=== PATIENT | female | born 1930 | race Two or more races ===

== ENCOUNTER 2017-01-06 19:30 | Inpatient (IN) | payer MEDICARE, MEDICAID ==
[~2017-01-06] VITALS: Ht 162.6 cm; Wt 54.4 kg
[~2017-01-06 19:30] MED LIST: DOCU-141 PO; LEVO50TA PO; ONDA4TAB8 PO; PANT40TA2 PO; VITAMIN D
[2017-01-06] MEDS ORDERED: LORAZEPAM 2 MG/1 ML VIAL IM ONE (19:45)
[2017-01-06] MEDS ORDERED: diphenhydrAMINE 50 MG/1 ML VIAL IM ONE (19:45)
[2017-01-06] MEDS ORDERED: HALOPERIDOL LACTATE 5 MG/1 ML VIAL IM ONE (19:45)
[2017-01-06] MEDS ORDERED: LORAZEPAM 2 MG/1 ML VIAL ONE (19:46)
[2017-01-06] MEDS ORDERED: HALOPERIDOL LACTATE 5 MG/1 ML VIAL ONE (19:46)
[2017-01-06] MEDS ORDERED: diphenhydrAMINE 50 MG/1 ML VIAL ONE (19:46)
[2017-01-06 20:01] LABS: BASOPHILS % (AUTO) 0.4 % (0.0-2.0); EOSINOPHILS # (AUTO) 0.2 K/uL (0.0-0.7); EOSINOPHILS % (AUTO) 2.6 % (0.0-7.0); HEMATOCRIT 39.3 % (37-47); HEMOGLOBIN 13.1 G/DL (12.0-16.0); LYMPHOCYTES # (AUTO) 3.3 K/UL (0.8-4.8); LYMPHOCYTES % (AUTO) 38.2 % (20.5-51.5); MEAN CORPUSCULAR HEMOGLOBIN 31.5 UUG (27.0-31.0); MEAN CORPUSCULAR HGB CONC 33 g/dL (32.0-37.0); MEAN CORPUSCULAR VOLUME 94.6 FL (81.0-99.0); MONOCYTES # (AUTO) 0.4 K/UL (0.1-1.30); MONOCYTES % (AUTO) 5.1 % (0.0-11.0); NEUTROPHILS # (AUTO) 4.7 K/UL (1.8-8.9); NEUTROPHILS % (AUTO) 53.7 % (38.5-71.5); PLATELET COUNT (AUTO) 231 K/UL (150-450); RED BLOOD CELL COUNT(AUTO) 4.15 MIL/UL (4.2-5.4); WHITE BLOOD COUNT (AUTO) 8.6 K/UL (4.0-11.2)
--- NOTE | 2017-01-06 20:02 | NUR ---
Patient BIB private ambulance for Medical Clearance and GPS admission. Patient arrives on 5150 hold for GD. Per hold, patient has been refusing food and care. Per hold, patient states that staff are "not real MD's and nurses." Per hold, patient beleives she can go get in her car and drive despite being legally blind. To room 5A.
[2017-01-06] MEDS ORDERED: RANI-473 PO (20:11)
[2017-01-06] MEDS ORDERED: ACET-2154 PO (20:11)
[2017-01-06] MEDS ORDERED: LISI10TA5 PO (20:11)
[2017-01-06] MEDS ORDERED: DONE10TA11 PO (20:11)
[2017-01-06 20:16] LABS: ALANINE AMINOTRANSFERASE 18 U/L (14-59); ALKALINE PHOSPHATASE 104 U/L (50-136); ASPARTATE AMINOTRANSFERASE 23 U/L (15-37); BILIRUBIN,DIRECT 0.1 mg/dL (0.0-0.2); BILIRUBIN,TOTAL 0.2 mg/dL (0.2-1.0); CARBON DIOXIDE 26 mmol/L (21-32); CHLORIDE 103 mmol/L (98-107); GLUCOSE 119 mg/dL (74-106); POTASSIUM 3.4 mmol/L (3.5-5.1); UREA NITROGEN, BLOOD 23 mg/dL (7-18)
[2017-01-06 20:18] LABS: ACETAMINOPHEN < 2.0 ug/mL (10-30)
[2017-01-06 20:23] LABS: THYROID STIMULATING HORMONE 3.607 mIU/mL (0.358-3.740)
[2017-01-06 20:30] LABS: ETHANOL < 3 MG/DL (0-0)
--- NOTE | 2017-01-06 21:20 | NUR ---
In-and-Out catheterization performed as ordered by ERMD, no urine available to be collected at this time. ERMD notified.
--- NOTE | 2017-01-06 21:36 | NUR ---
Pt. admitted to GPS, under care of Dr. Diaz. Belongs List completed.
[2017-01-06] MEDS ORDERED: MAGNESIUM HYDROXIDE 30 ML LIQUID UDC PO PRN (22:00)
[2017-01-06] MEDS ORDERED: ACETAMINOPHEN 325 MG TABLET PO PRN (22:00)
[2017-01-06] MEDS ORDERED: MAG HYDROX/AL HYDROX/SIMETH 30 ML LIQUID UDC PO PRN (22:00)
[2017-01-06] MEDS: TEMAZEPAM 7.5 MG CAPSULE PO PRN (23:00)
[2017-01-06] MEDS ORDERED: TEMAZEPAM 7.5 MG CAPSULE ONE (23:08)
--- NOTE | 2017-01-07 00:17 | NUR ---
On at approx 2145 admitted 86 years old to [facility]. with Dx psychosis. Pt is on a 5150 hold starting on 01/06/17 at 1730 and will end on 01/09/17 at 1730. Patient from a SNF who was refusing food, medication and care. She is a pt of Dr. Ortiz and Dr Cortes. Patient enter the facility via gurney. She was noted restless and agitative. She was unable to sign admission papers or give any information due to confusion and agitation. Dr. Cortes and Dr. العراقي were notified of admission awaiting for Dr. Rolle to call back. Skin is intact except for small red/purple bruises on both of her wrist posterior aspect and a small red circular spot of approx 0.6cm in diameter. we will call in the AM.
[2017-01-07 01:56] VITALS: BP 96/51
[2017-01-07 01:58] VITALS: BP 96/51
[2017-01-07 07:30] VITALS: BP 118/81
[2017-01-07] MEDS ORDERED: POTASSIUM CHLORIDE 20 MEQ TAB.PRT.SR PO ONE (13:00)
--- NOTE | 2017-01-07 13:01 | NUR ---
GPS/RN- Dr Zain Vasquez here to see patient, discussed chest xray results from 01/06/17: Mildly prominent interstitial lung markings, possibly representing interstitial edema, a viral chest infection, and/or chronic lung changes. no new orders. Current labs show potassium level 3.4, orders received for potassium order for 40meq once. orders repeated back to MD.
--- NOTE | 2017-01-07 15:32 | NUR ---
Initial discharge instructions: Pt resides at [facility][Note 3] [[address].[place],[address]; ].Per Jaimie ELIAS she would like the pt to return home upon discharge.Spoke with Juan F at the facility who stated they would accept the pt back once stable.CHAUNCEY will speak with pt,DPOA,and MD regarding appropriate discharge plans.SW will form a safe and proper discharge.
[2017-01-07 18:38] VITALS: BP 163/77
[2017-01-07 20:00] VITALS: BP 124/68
[2017-01-07] MEDS ORDERED: OLANZAPINE ZYDIS 5 MG TAB.RAPDIS PO SCH (20:00)
[2017-01-07] MEDS: DIVALPROEX SPRINKLE 125 MG CAP.SPRINK PO SCH (20:05)
[2017-01-07] MEDS ORDERED: ONDANSETRON ODT 4 MG TAB.RAPDIS SL PRN (21:30)
[2017-01-07] MEDS ORDERED: ACETAMINOPHEN 325 MG TABLET PO PRN (21:30)
[2017-01-08] MEDS: TEMAZEPAM 7.5 MG CAPSULE PO PRN (00:48)
[2017-01-08 01:36] LABS: *BILIRUBIN,URIN NEGATIVE (NEGATIVE); *BLOOD, URINE NEGATIVE (NEGATIVE); *CLARITY,URINE CLEAR (CLEAR); *COLOR,URINE YELLOW (YELLOW); *KETONES,URINE NEGATIVE (NEGATIVE); *PROTEIN,URINE NEGATIVE (NEGATIVE); *UROBILINOGEN,URINE 0.2 E.U./dl (NORMAL); LEUKOCYTE ESTERASE ,URINE NEGATIVE (NEGATIVE); NITRITE, URINE NEGATIVE (NEGATIVE); UGLUCOSE NEGATIVE (NEGATIVE)
[2017-01-08 01:41] LABS: RBC,URINE NONE SEEN /HPF (0-3); WBC,URINE 0-3 /HPF (0-3)
[2017-01-08 01:42] LABS: BACTERIA,URINE NONE SEEN /HPF (NONE SEEN); SQUAMOUS EPITHELIAL CELL,UR FEW /HPF (NONE SEEN)
[2017-01-08 07:30] VITALS: BP 152/79
[2017-01-08] MEDS: PANTOPRAZOLE SODIUM 40 MG TABLET.DR PO SCH (09:00)
[2017-01-08] MEDS: DIVALPROEX SPRINKLE 125 MG CAP.SPRINK PO SCH ×2 (09:00→20:05)
[2017-01-08] MEDS: LISINOPRIL 10 MG TABLET PO SCH (09:00)
[2017-01-08] MEDS: LEVOTHYROXINE SODIUM 25 MCG TABLET PO SCH (09:00)
[2017-01-08] MEDS: DOCUSATE SODIUM 100 MG CAPSULE PO SCH ×2 (09:00→17:00)
[2017-01-08] MEDS ORDERED: LEVOTHYROXINE SODIUM 50 MCG TABLET PO SCH (09:00)
[2017-01-08] MEDS: LORAZEPAM 0.5 MG TABLET PO PRN (16:08)
[2017-01-08] MEDS: OLANZAPINE ZYDIS 5 MG TAB.RAPDIS PO SCH (17:00)
[2017-01-08 20:00] VITALS: BP 129/60
[2017-01-08] MEDS: Z GUARD REMEDY PASTE 57 GM TUBE TOP SCH (20:05)
[2017-01-09] MEDS: TEMAZEPAM 7.5 MG CAPSULE PO PRN (01:45)
[2017-01-09] MEDS: LEVOTHYROXINE SODIUM 25 MCG TABLET PO SCH (07:00)
[2017-01-09] MEDS: PANTOPRAZOLE SODIUM 40 MG TABLET.DR PO SCH (07:00)
--- NOTE | 2017-01-09 07:13 | NUR ---
patient refused her AM medication: pantoprazole and levothyroxine, encouraged x3 still refused. Patient slept only one this AM. we will continue to monitor
[2017-01-09 07:30] VITALS: BP 134/69
[2017-01-09] MEDS: OLANZAPINE ZYDIS 5 MG TAB.RAPDIS PO SCH ×2 (09:00→17:00)
[2017-01-09] MEDS: DIVALPROEX SPRINKLE 125 MG CAP.SPRINK PO SCH ×2 (09:00→21:24)
[2017-01-09] MEDS: DOCUSATE SODIUM 100 MG CAPSULE PO SCH ×2 (09:00→17:00)
[2017-01-09] MEDS: LISINOPRIL 10 MG TABLET PO SCH (09:00)
[2017-01-09] MEDS: Z GUARD REMEDY PASTE 57 GM TUBE TOP SCH ×2 (10:19→21:07)
[2017-01-09 15:00] VITALS: BP 94/56
[2017-01-09 20:50] VITALS: BP 120/62
[2017-01-10] MEDS: LEVOTHYROXINE SODIUM 25 MCG TABLET PO SCH (06:51)
--- NOTE | 2017-01-10 06:57 | NUR ---
Patient refused Pantoprazole QAM; however, she was able to take her Levothyroxine QAM. we will continue to monitor.
[2017-01-10] MEDS: PANTOPRAZOLE SODIUM 40 MG TABLET.DR PO SCH (07:00)
--- NOTE | 2017-01-10 07:13 | NUR ---
Patient have not have a BM in last 6 days. MOM 30cc PO was offered; however patient refused. He stated "my doctor is not here, only if my doctor, tells me so". Normal bowel sound heard in all 4 quadrants. Patient denies pain or discomfort at this time. we will continue to monitor.
[2017-01-10 07:30] VITALS: BP 168/73
[2017-01-10] MEDS: DOCUSATE SODIUM 100 MG CAPSULE PO SCH ×2 (07:54→17:00)
[2017-01-10] MEDS: LISINOPRIL 10 MG TABLET PO SCH (07:55)
[2017-01-10] MEDS: OLANZAPINE ZYDIS 5 MG TAB.RAPDIS PO SCH ×2 (07:55→17:00)
[2017-01-10] MEDS: DIVALPROEX SPRINKLE 125 MG CAP.SPRINK PO SCH ×2 (07:55→22:30)
[2017-01-10] MEDS: Z GUARD REMEDY PASTE 57 GM TUBE TOP SCH ×2 (07:58→21:30)
[2017-01-10 20:54] VITALS: BP 163/68
[2017-01-11] MEDS: PANTOPRAZOLE SODIUM 40 MG TABLET.DR PO SCH (07:15)
[2017-01-11] MEDS: LEVOTHYROXINE SODIUM 25 MCG TABLET PO SCH (07:15)
[2017-01-11 07:30] VITALS: BP 139/66
[2017-01-11] MEDS: DOCUSATE SODIUM 100 MG CAPSULE PO SCH ×2 (08:41→16:51)
[2017-01-11] MEDS: DIVALPROEX SPRINKLE 125 MG CAP.SPRINK PO SCH ×2 (08:41→20:35)
[2017-01-11] MEDS: LISINOPRIL 10 MG TABLET PO SCH (08:41)
[2017-01-11] MEDS: OLANZAPINE ZYDIS 5 MG TAB.RAPDIS PO SCH ×3 (08:41→16:51)
[2017-01-11] MEDS: Z GUARD REMEDY PASTE 57 GM TUBE TOP SCH ×2 (09:11→20:54)
--- NOTE | 2017-01-11 13:00 | NUR ---
PT IS AGGITATED, PARANOID, DELUSIONAL, LABILE. BELIVES PEOPLE ARE TALKING ABOUT HER AND MAKING FUN OF HER. OFFERED PRN AND PT AGREED, THEN AFTER TAKING IT YELLED "WHAT DID YOU DO THAT FOR".
[2017-01-11] MEDS: LORAZEPAM 0.5 MG TABLET PO PRN (13:11)
[2017-01-11] MEDS ORDERED: LORAZEPAM 2 MG/1 ML VIAL IM STA (16:46)
[2017-01-11] MEDS ORDERED: diphenhydrAMINE 50 MG/1 ML VIAL IM STA (16:46)
[2017-01-11] MEDS ORDERED: HALOPERIDOL LACTATE 5 MG/1 ML VIAL IM STA (16:46)
--- NOTE | 2017-01-11 17:59 | NUR ---
PT REMAINED AGITATED, REFUSING MEDS, SCREAMING, NOT RE DIRECTABLE, STRIKING OUT AT STAFF, VERBALLY THREATENING OTHERS. GAVE IM PER MD ORDERS AT 1700, PT TOLERATED WELL. WILL CONTINUE TO MONITOR.
[2017-01-11 20:11] VITALS: BP 126/91
--- NOTE | 2017-01-11 23:19 | NUR ---
pt is confused and disoriented, guarded, labile, anxious, unpredictable, restless, needs prompting with meds, sitter at bedside, will continue to monitor closely.
[2017-01-12] MEDS: PANTOPRAZOLE SODIUM 40 MG TABLET.DR PO SCH (06:49)
[2017-01-12] MEDS: LEVOTHYROXINE SODIUM 25 MCG TABLET PO SCH (06:49)
[2017-01-12] MEDS: DOCUSATE SODIUM 100 MG CAPSULE PO SCH ×3 (08:43→17:00)
[2017-01-12] MEDS: LISINOPRIL 10 MG TABLET PO SCH ×2 (08:50→09:00)
[2017-01-12] MEDS: DIVALPROEX SPRINKLE 125 MG CAP.SPRINK PO SCH ×3 (08:50→21:01)
[2017-01-12] MEDS: OLANZAPINE ZYDIS 5 MG TAB.RAPDIS PO SCH ×3 (08:50→17:00)
[2017-01-12] MEDS: Z GUARD REMEDY PASTE 57 GM TUBE TOP SCH ×2 (08:57→21:02)
--- NOTE | 2017-01-12 09:08 | NUR ---
GPS/RN- patient remains confused, disoriented and delusional, verbalizing to staff " I know you stole from the bank, I was a witness", patient also verbally abusive when provided with reality reorientation, verbalizing to staff "you are just a whore". patient has poor insight and judgement, impaired. Easily irritable and agitated, attempts to ambulate without assistance fall risk; when assisting with ADLs patient becomes combative and paranoid, patient with unsteady gait and impaired vision.
[2017-01-12] MEDS ORDERED: OLANZAPINE 10 MG VIAL IM ONE (11:00)
--- NOTE | 2017-01-12 11:10 | NUR ---
GPS./RN-patient continues agitated anxious and restless frequently shouting, combative/resistive with care, paranoid, Dr Cortes notified, unable to redirect. IM orders received for Zyprexa 5mg IM Once
--- NOTE | 2017-01-12 11:30 | NUR ---
patient continues agitated anxious and restless frequently shouting, combative/resistive with care, MD laxmi notified, unable to redirect. IM orders received for Zyprexa 5mg IM Once given at 1110. Will continue to monitor for safety and behavioral changes.
[2017-01-12] MEDS ORDERED: BENZTROPINE MESYLATE 2 MG/2 ML AMPUL IM ONE (13:00)
[2017-01-12] MEDS ORDERED: HALOPERIDOL LACTATE 5 MG/1 ML VIAL IM ONE (13:00)
[2017-01-12] MEDS ORDERED: LORAZEPAM 2 MG/1 ML VIAL IM ONE (13:00)
--- NOTE | 2017-01-12 14:07 | NUR ---
[facility] HEARING received call from [address], hearing scheduled for 1030am tomorrow 01/13/17. Dr Cortes notified.
[2017-01-12 16:40] VITALS: BP 99/57
--- NOTE | 2017-01-12 17:28 | NUR ---
Patient refused am and pm medications, ate 100% breakfast, refused lunch and dinner, MD aware. Patient remains confused and restless, but more redirectable, no screaming noted. Remains on 1:1 sitter. Will continue to monitor for safety and needs.
[2017-01-13] MEDS: LEVOTHYROXINE SODIUM 25 MCG TABLET PO SCH (07:00)
[2017-01-13] MEDS: PANTOPRAZOLE SODIUM 40 MG TABLET.DR PO SCH (07:00)
--- NOTE | 2017-01-13 07:29 | NUR ---
Patient refused QAM medication: Pantoprazole and Synthroid.
[2017-01-13 07:30] VITALS: BP 127/63
[2017-01-13] MEDS: LISINOPRIL 10 MG TABLET PO SCH (09:00)
[2017-01-13] MEDS: DIVALPROEX SPRINKLE 125 MG CAP.SPRINK PO SCH ×2 (09:00→20:38)
[2017-01-13] MEDS: OLANZAPINE ZYDIS 5 MG TAB.RAPDIS PO SCH ×2 (09:00→16:57)
[2017-01-13] MEDS: DOCUSATE SODIUM 100 MG CAPSULE PO SCH ×2 (09:00→17:00)
[2017-01-13] MEDS: Z GUARD REMEDY PASTE 57 GM TUBE TOP SCH ×2 (09:22→20:38)
[2017-01-13] MEDS ORDERED: OLANZAPINE 10 MG VIAL IM PRN (11:00)
--- NOTE | 2017-01-13 18:18 | NUR ---
Patient less agitated in am, refused am medications, was reised. Patient took her pm medication with lots of prompting. Remains confused and disoriented, ate 100% breakfast, 25% lunch, and 75% dinner. Fairly groomed, showered this am. Remains on 1:1 sitter for safety. Will continue to monitor for safety and needs.
[2017-01-13 21:25] VITALS: BP 139/58
--- NOTE | 2017-01-13 21:40 | NUR ---
pt awake in her room sitting up and talking to her sitter, very disorganized thought, labile and unpredictable, took meds with lots of encouragement and distractions, will continue to monitor closely.
--- NOTE | 2017-01-13 22:16 | NUR ---
anxious and agitated, anti anxiety med offered, pt declined.
[2017-01-13] MEDS: LORAZEPAM 0.5 MG TABLET PO PRN (22:24)
[2017-01-14] MEDS: LEVOTHYROXINE SODIUM 25 MCG TABLET PO SCH (06:22)
[2017-01-14] MEDS: PANTOPRAZOLE SODIUM 40 MG TABLET.DR PO SCH (06:22)
[2017-01-14 07:31] LABS: CARBON DIOXIDE 30 mmol/L (21-32); CHLORIDE 107 mmol/L (98-107); CREATININE 0.9 mg/dL (0.6-1.3); GLUCOSE 93 mg/dL (74-106); POTASSIUM 4.6 mmol/L (3.5-5.1); UREA NITROGEN, BLOOD 31 mg/dL (7-18)
[2017-01-14] MEDS: LISINOPRIL 10 MG TABLET PO SCH (08:14)
[2017-01-14] MEDS: OLANZAPINE ZYDIS 5 MG TAB.RAPDIS PO SCH ×3 (08:14→16:15)
[2017-01-14] MEDS: DIVALPROEX SPRINKLE 125 MG CAP.SPRINK PO SCH ×2 (08:14→21:49)
[2017-01-14] MEDS: DOCUSATE SODIUM 100 MG CAPSULE PO SCH ×2 (08:14→16:15)
[2017-01-14] MEDS: Z GUARD REMEDY PASTE 57 GM TUBE TOP SCH ×2 (08:15→21:49)
[2017-01-14] MEDS ORDERED: OLANZAPINE 10 MG VIAL IM PRN (13:00)
[2017-01-14 20:19] VITALS: BP 139/68
--- NOTE | 2017-01-14 22:00 | NUR ---
received to care, lying in bed, talkin gto self, 1;1 sitter at side, for safety. compliant with medications, with encouragement. as of 2199, she appears to be falling asleep, but remains restless, at times. will continue to monitor closely.
[2017-01-15] MEDS: PANTOPRAZOLE SODIUM 40 MG TABLET.DR PO SCH (06:29)
[2017-01-15] MEDS: LEVOTHYROXINE SODIUM 25 MCG TABLET PO SCH (06:33)
--- NOTE | 2017-01-15 06:34 | NUR ---
slept 7.75 hours, total. refused AM medications. sitter remains at side.
[2017-01-15 07:30] VITALS: BP 123/76
[2017-01-15] MEDS: DIVALPROEX SPRINKLE 125 MG CAP.SPRINK PO SCH ×3 (09:31→17:23)
[2017-01-15] MEDS: DOCUSATE SODIUM 100 MG CAPSULE PO SCH ×2 (09:31→17:23)
[2017-01-15] MEDS: OLANZAPINE ZYDIS 5 MG TAB.RAPDIS PO SCH ×3 (09:32→17:23)
[2017-01-15] MEDS: LISINOPRIL 10 MG TABLET PO SCH (09:38)
[2017-01-15] MEDS: Z GUARD REMEDY PASTE 57 GM TUBE TOP SCH ×2 (09:38→20:30)
[2017-01-15 20:38] VITALS: BP 126/77
[2017-01-16] MEDS: PANTOPRAZOLE SODIUM 40 MG TABLET.DR PO SCH (06:24)
[2017-01-16] MEDS: LEVOTHYROXINE SODIUM 25 MCG TABLET PO SCH (06:24)
[2017-01-16 07:30] VITALS: BP 11/52
[2017-01-16] MEDS: DIVALPROEX SPRINKLE 125 MG CAP.SPRINK PO SCH ×2 (08:09→17:16)
[2017-01-16] MEDS: LISINOPRIL 10 MG TABLET PO SCH (08:10)
[2017-01-16] MEDS: OLANZAPINE ZYDIS 5 MG TAB.RAPDIS PO SCH ×3 (08:10→17:16)
[2017-01-16] MEDS: DOCUSATE SODIUM 100 MG CAPSULE PO SCH ×2 (08:13→17:16)
[2017-01-16] MEDS: Z GUARD REMEDY PASTE 57 GM TUBE TOP SCH ×2 (08:14→20:11)
[2017-01-16 20:21] VITALS: BP 109/61
[2017-01-16] MEDS: TEMAZEPAM 7.5 MG CAPSULE PO PRN (21:28)
[2017-01-17] MEDS: LORAZEPAM 0.5 MG TABLET PO PRN ×2 (01:48→19:44)
[2017-01-17] MEDS: LEVOTHYROXINE SODIUM 25 MCG TABLET PO SCH (06:46)
[2017-01-17] MEDS: PANTOPRAZOLE SODIUM 40 MG TABLET.DR PO SCH (06:46)
[2017-01-17 07:30] VITALS: BP 152/60
[2017-01-17] MEDS: DIVALPROEX SPRINKLE 125 MG CAP.SPRINK PO SCH ×2 (10:19→16:36)
[2017-01-17] MEDS: LISINOPRIL 10 MG TABLET PO SCH (10:20)
[2017-01-17] MEDS: DOCUSATE SODIUM 100 MG CAPSULE PO SCH ×2 (10:20→16:36)
[2017-01-17] MEDS: OLANZAPINE ZYDIS 5 MG TAB.RAPDIS PO SCH ×3 (10:20→16:36)
[2017-01-17] MEDS: Z GUARD REMEDY PASTE 57 GM TUBE TOP SCH ×2 (10:21→20:02)
[2017-01-17 15:52] VITALS: BP 107/52
[2017-01-17 20:20] VITALS: BP 116/56
[2017-01-17] MEDS: TEMAZEPAM 7.5 MG CAPSULE PO PRN (22:33)
--- NOTE | 2017-01-17 22:33 | NUR ---
PHARMACY NOTE: Pt CONTINUED TO BE RESTLESS AND ANXIOUS AFTER ATIVAN 0.5MG WAS GIVEN AT 1943. RN ATTEMPTED TO ADMINISTER RESTORIL 7.5MG AT 2139, BUT Pt INITIALLY REFUSED IT. Pt AGREED TO TAKE IT ON 2ND ADMINISTRATION ATTEMPT AT 2232.
[2017-01-18] MEDS: LEVOTHYROXINE SODIUM 25 MCG TABLET PO SCH (06:13)
[2017-01-18] MEDS: PANTOPRAZOLE SODIUM 40 MG TABLET.DR PO SCH (06:13)
[2017-01-18 07:02] LABS: BASOPHILS % (AUTO) 0.3 % (0.0-2.0); EOSINOPHILS # (AUTO) 0.1 K/uL (0.0-0.7); HEMATOCRIT 42.1 % (37-47); HEMOGLOBIN 13.9 G/DL (12.0-16.0); LYMPHOCYTES # (AUTO) 2.3 K/UL (0.8-4.8); LYMPHOCYTES % (AUTO) 29.8 % (20.5-51.5); MEAN CORPUSCULAR HEMOGLOBIN 31.7 UUG (27.0-31.0); MEAN CORPUSCULAR HGB CONC 33 g/dL (32.0-37.0); MEAN CORPUSCULAR VOLUME 95.8 FL (81.0-99.0); MONOCYTES # (AUTO) 0.5 K/UL (0.1-1.30); NEUTROPHILS # (AUTO) 4.8 K/UL (1.8-8.9); NEUTROPHILS % (AUTO) 62.9 % (38.5-71.5); PLATELET COUNT (AUTO) 195 K/UL (150-450); WHITE BLOOD COUNT (AUTO) 7.7 K/UL (4.0-11.2)
[2017-01-18 07:07] LABS: ALANINE AMINOTRANSFERASE 22 U/L (14-59); ALKALINE PHOSPHATASE 94 U/L (50-136); ASPARTATE AMINOTRANSFERASE 23 U/L (15-37); BILIRUBIN,TOTAL 0.2 mg/dL (0.2-1.0); CARBON DIOXIDE 28 mmol/L (21-32); CHLORIDE 107 mmol/L (98-107); GLUCOSE 91 mg/dL (74-106); MAGNESIUM 2.2 mg/dL (1.8-2.4); TOTAL PROTEIN, SERUM 7.6 g/dL (6.4-8.2); UREA NITROGEN, BLOOD 24 mg/dL (7-18); VALPROIC ACID 51 ug/mL (50-100)
[2017-01-18 07:30] VITALS: BP 108/61
[2017-01-18] MEDS: LISINOPRIL 10 MG TABLET PO SCH (08:10)
[2017-01-18] MEDS: OLANZAPINE ZYDIS 5 MG TAB.RAPDIS PO SCH ×3 (08:10→16:58)
[2017-01-18] MEDS: DOCUSATE SODIUM 100 MG CAPSULE PO SCH ×2 (08:10→16:58)
[2017-01-18] MEDS: DIVALPROEX SPRINKLE 125 MG CAP.SPRINK PO SCH ×2 (08:10→16:58)
[2017-01-18] MEDS: Z GUARD REMEDY PASTE 57 GM TUBE TOP SCH ×2 (09:21→20:00)
[2017-01-18 15:23] VITALS: BP 104/49
[2017-01-18 20:12] VITALS: BP 121/58
[2017-01-19] MEDS: PANTOPRAZOLE SODIUM 40 MG TABLET.DR PO SCH (06:33)
[2017-01-19] MEDS: LEVOTHYROXINE SODIUM 25 MCG TABLET PO SCH (06:33)
[2017-01-19 07:30] VITALS: BP 137/58
[2017-01-19] MEDS: LISINOPRIL 10 MG TABLET PO SCH (08:15)
[2017-01-19] MEDS: DIVALPROEX SPRINKLE 125 MG CAP.SPRINK PO SCH ×2 (08:15→16:47)
[2017-01-19] MEDS: DOCUSATE SODIUM 100 MG CAPSULE PO SCH ×2 (08:15→16:47)
[2017-01-19] MEDS: OLANZAPINE ZYDIS 5 MG TAB.RAPDIS PO SCH ×3 (08:16→16:47)
[2017-01-19] MEDS: Z GUARD REMEDY PASTE 57 GM TUBE TOP SCH ×2 (10:24→20:13)
[2017-01-19 15:30] VITALS: BP 142/61
[2017-01-19 20:15] VITALS: BP 140/63
[2017-01-20] MEDS: PANTOPRAZOLE SODIUM 40 MG TABLET.DR PO SCH (06:47)
[2017-01-20] MEDS: LEVOTHYROXINE SODIUM 25 MCG TABLET PO SCH (06:47)
[2017-01-20] MEDS: OLANZAPINE ZYDIS 5 MG TAB.RAPDIS PO SCH ×2 (08:00→12:40)
[2017-01-20] MEDS: DOCUSATE SODIUM 100 MG CAPSULE PO SCH ×2 (08:00→17:12)
[2017-01-20] MEDS: DIVALPROEX SPRINKLE 125 MG CAP.SPRINK PO SCH ×2 (08:00→20:08)
[2017-01-20] MEDS: LISINOPRIL 10 MG TABLET PO SCH (09:00)
[2017-01-20] MEDS: Z GUARD REMEDY PASTE 57 GM TUBE TOP SCH ×2 (09:51→20:08)
[2017-01-20] MEDS ORDERED: OLANZAPINE ZYDIS 5 MG TAB.RAPDIS PO SCH ×2 (13:00→17:00)
[2017-01-20 16:00] VITALS: BP 129/59
[2017-01-20 20:07] VITALS: BP 118/59
[2017-01-21] MEDS: PANTOPRAZOLE SODIUM 40 MG TABLET.DR PO SCH (06:08)
[2017-01-21] MEDS: LEVOTHYROXINE SODIUM 25 MCG TABLET PO SCH (06:08)
[2017-01-21 07:30] VITALS: BP 158/72
[2017-01-21] MEDS: DOCUSATE SODIUM 100 MG CAPSULE PO SCH (08:03)
[2017-01-21 08:04] VITALS: BP 158/72
[2017-01-21] MEDS: OLANZAPINE ZYDIS 5 MG TAB.RAPDIS PO SCH ×2 (08:04→13:10)
[2017-01-21] MEDS: DIVALPROEX SPRINKLE 125 MG CAP.SPRINK PO SCH (08:04)
[2017-01-21] MEDS: LISINOPRIL 10 MG TABLET PO SCH (08:04)
[2017-01-21] MEDS: Z GUARD REMEDY PASTE 57 GM TUBE TOP SCH (08:05)
--- NOTE | 2017-01-21 10:45 | NUR ---
DC Note: Patient will be discharged to [facility] [[address] [place] [address]; ] via ambulance at 12:00 pm. Please schedule an ambulance for the patient. Spoke with Juan F at the facility who stated they would accept the patient today. Spoke with patient's DPOA, Jaimie Duque [phone] who is aware and agreeable with discharge plans. Patient will follow-up with (Psychiatrist) and (Wagon Drill Operator) at the facility.
--- NOTE | 2017-01-21 11:45 | NUR ---
CALLED [facility] SPOKE WITH ZAIDA AND REPORT GIVEN TO HER FOR CONTINUE CARE
--- NOTE | 2017-01-21 13:28 | NUR ---
PATIENT DISCHARGED PICKED UP BY MED RESPONSE TO [facility]ISFACT[facility] CONDITION WITH ALL THE DISCHARGE INSTRUCTIONS. PATIENT IS CONFUSED BUT ALERT TO SELF BUT DOES NOT SEEM TO UNDERSTAND THAT SHE IS BEING DISCHARGED BACK TO HER PLACE OF RESIDENCE.
== END 2017-01-21 13:30 | DRG 885 ==
LOC: ER 19:30 → GPS 21:04
PROVIDERS: ADMIT Psychiatry & Neurology Psychosomatic Medicine; ATTEND Psychiatry & Neurology Psychosomatic Medicine
DX: F25.9 Schizoaffective disorder, unspecified (principal); F03.91 Unspecified dementia, unspecified severity, with behavioral disturbance; F23 Brief psychotic disorder; Z79.899 Other long term (current) drug therapy; M19.90 Unspecified osteoarthritis, unspecified site; K21.9 Gastro-esophageal reflux disease without esophagitis; H54.8 Legal blindness, as defined in USA; F41.9 Anxiety disorder, unspecified; F25.0 Schizoaffective disorder, bipolar type; E78.5 Hyperlipidemia, unspecified; E03.9 Hypothyroidism, unspecified; F29 Unspecified psychosis not due to a substance or known physiological condition
CPT/HCPCS: 36415; 70030-TC; 71010; 80164; 83735; 84443; 85025; 85730; 87086; 93005; 97110; 97116; 97161; 97530; A4663; G0480; G0480-TC; J1200; J1630; J2060; J2358

== ENCOUNTER 2018-11-06 08:28 | Inpatient (IN) | payer MEDICARE, MEDICAID ==
[~2018-11-06] VITALS: Ht 162.6 cm; Wt 55.3 kg
[~2018-11-06 08:28] MED LIST changes: +ACET-2154 PO; +LISI10TA5 PO; +RANI-473 PO
[2018-11-06] MEDS ORDERED: DIVA125C2 PO (08:46)
[2018-11-06] MEDS ORDERED: DONE10TA11 PO (08:46)
[2018-11-06] MEDS ORDERED: MAGN400O6 PO (08:46)
[2018-11-06] MEDS ORDERED: LISI-603 PO (08:46)
[2018-11-06] MEDS ORDERED: OLAN2.5T3 PO (08:46)
[2018-11-06 08:56] LABS: BASOPHILS # (AUTO) 0.1 K/uL (0.0-8.0); BASOPHILS % (AUTO) 0.4 % (0.0-2.0); EOSINOPHILS % (AUTO) 0.2 % (0.0-7.0); HEMATOCRIT 35.1 % (31.2-41.9); HEMOGLOBIN 11.7 g/dL (10.9-14.3); LYMPHOCYTES # (AUTO) 2.2 K/uL (20.0-40.0); LYMPHOCYTES % (AUTO) 16.3 % (20.5-51.5); MEAN CORPUSCULAR HEMOGLOBIN 31.7 uug (24.7-32.8); MEAN CORPUSCULAR HGB CONC 33 g/dL (32.3-35.6); MEAN CORPUSCULAR VOLUME 95.5 fL (75.5-95.3); MONOCYTES # (AUTO) 0.7 K/uL (2.0-10.0); NEUTROPHILS # (AUTO) 10.6 K/uL (1.8-8.9); NEUTROPHILS % (AUTO) 78.1 % (38.5-71.5); PLATELET COUNT (AUTO) 220 K/uL (179-408); RED BLOOD CELL COUNT(AUTO) 3.67 MIL/uL (3.63-4.92); WHITE BLOOD COUNT (AUTO) 13.5 K/uL (3.8-11.8)
[2018-11-06 09:00] LABS: CARBON DIOXIDE 26 mmol/L (21-32); CHLORIDE 103 mmol/L (98-107); CREATININE 1.1 mg/dL (0.6-1.3); GLUCOSE 119 mg/dL (74-106); POTASSIUM 4.2 mmol/L (3.5-5.1); UREA NITROGEN, BLOOD 23 mg/dL (7-18)
[2018-11-06] MEDS ORDERED: IV NS 1000 ML 1,000 ML IV ONE (09:00)
[2018-11-06 09:11] LABS: ALANINE AMINOTRANSFERASE 14 U/L (14-59); ALKALINE PHOSPHATASE 75 U/L (50-136); ASPARTATE AMINOTRANSFERASE 21 U/L (15-37); BILIRUBIN,DIRECT < 0.1 mg/dL (0.0-0.2); BILIRUBIN,TOTAL 0.1 mg/dL (0.2-1.0); TOTAL PROTEIN, SERUM 6.9 g/dL (6.4-8.2)
[2018-11-06 09:42] LABS: *BILIRUBIN,URIN NEGATIVE (NEGATIVE); *BLOOD, URINE 1+ (NEGATIVE); *CLARITY,URINE CLEAR (CLEAR); *COLOR,URINE YELLOW (YELLOW); *KETONES,URINE NEGATIVE (NEGATIVE); LEUKOCYTE ESTERASE ,URINE 2+ (NEGATIVE); NITRITE, URINE NEGATIVE (NEGATIVE); PH,URINE 7.5 (5.0-8.0); UGLUCOSE NEGATIVE (NEGATIVE)
[2018-11-06 09:47] LABS: BACTERIA,URINE FEW /HPF (NONE SEEN); SQUAMOUS EPITHELIAL CELL,UR FEW /HPF (NONE SEEN)
[2018-11-06] MEDS ORDERED: CEFTRIAXONE 1 G VIAL ONE (10:00)
[2018-11-06] MEDS ORDERED: CEFTRIAXONE 1 G in IV DEXTROSE 5% 50 ML IV ONE (10:00)
[2018-11-06] MEDS ORDERED: HYDROCODONE/APAP 5-325MG TABLET PO PRN (10:30)
[2018-11-06] MEDS ORDERED: ONDANSETRON 4 MG/2 ML VIAL IV PRN (10:30)
[2018-11-06] MEDS ORDERED: ACETAMINOPHEN 325 MG TABLET PO PRN (10:30)
[2018-11-06] MEDS ORDERED: MAGNESIUM HYDROXIDE 30 ML LIQUID UDC PO PRN (10:30)
[2018-11-06] MEDS ORDERED: Z GUARD REMEDY PASTE 57 GM TUBE TOP PRN (10:30)
[2018-11-06] MEDS: IV NS 1000 ML 1,000 ML IV PRN (11:22)
[2018-11-06 11:42] VITALS: BP 113/50
[2018-11-06] MEDS: OLANZAPINE 2.5 MG TABLET PO SCH ×2 (13:18→16:34)
[2018-11-06 15:11] VITALS: BP 143/66
[2018-11-06] MEDS: DOCUSATE SODIUM 100 MG CAPSULE PO SCH (16:34)
[2018-11-06 20:05] VITALS: BP 145/51
[2018-11-06] MEDS: DONEPEZIL 10 MG TABLET PO SCH (20:39)
[2018-11-06] MEDS: DIVALPROEX SPRINKLE 125 MG CAP.SPRINK PO SCH (20:39)
[2018-11-06] MEDS: Z GUARD REMEDY PASTE 57 GM TUBE TOP SCH (20:41)
[2018-11-06] MEDS: ENOXAPARIN SODIUM 40 MG/0.4 ML DISP.SYRIN SQ SCH (20:47)
[2018-11-07 00:46] VITALS: BP 125/30
[2018-11-07] MEDS: IV NS 1000 ML 1,000 ML IV PRN ×2 (04:25→22:00)
[2018-11-07 04:45] VITALS: BP 133/49
[2018-11-07] MEDS: LEVOTHYROXINE SODIUM 50 MCG TABLET PO SCH (06:10)
[2018-11-07 06:53] LABS: BASOPHILS % (AUTO) 0.3 % (0.0-2.0); EOSINOPHILS % (AUTO) 0.1 % (0.0-7.0); HEMATOCRIT 32.7 % (31.2-41.9); LYMPHOCYTES # (AUTO) 2.2 K/uL (20.0-40.0); LYMPHOCYTES % (AUTO) 21.9 % (20.5-51.5); MEAN CORPUSCULAR HEMOGLOBIN 32.3 uug (24.7-32.8); MEAN CORPUSCULAR HGB CONC 34 g/dL (32.3-35.6); MONOCYTES # (AUTO) 0.5 K/uL (2.0-10.0); MONOCYTES % (AUTO) 4.8 % (0.0-11.0); NEUTROPHILS # (AUTO) 7.3 K/uL (1.8-8.9); NEUTROPHILS % (AUTO) 72.9 % (38.5-71.5); PLATELET COUNT (AUTO) 204 K/uL (179-408)
[2018-11-07 07:14] LABS: CARBON DIOXIDE 27 mmol/L (21-32); CHLORIDE 106 mmol/L (98-107); CHOLESTEROL 223 mg/dL (<200); CREATININE 0.8 mg/dL (0.6-1.3); GLUCOSE 86 mg/dL (74-106); HDL CHOLESTEROL 59 mg/dL (40-60); PHOSPHOROUS 3.6 mg/dL (2.5-4.9); TRIGLYCERIDES 73 MG/DL (30-150); UREA NITROGEN, BLOOD 19 mg/dL (7-18)
[2018-11-07 07:18] LABS: THYROID STIMULATING HORMONE 3.657 mIU/mL (0.358-3.740)
[2018-11-07] MEDS: OLANZAPINE 2.5 MG TABLET PO SCH ×3 (08:12→16:07)
[2018-11-07] MEDS: DOCUSATE SODIUM 100 MG CAPSULE PO SCH ×2 (08:12→16:07)
[2018-11-07] MEDS: LISINOPRIL 20 MG TABLET PO SCH (08:13)
[2018-11-07] MEDS: DIVALPROEX SPRINKLE 125 MG CAP.SPRINK PO SCH ×2 (08:13→21:05)
[2018-11-07] MEDS: PANTOPRAZOLE SODIUM 40 MG TABLET.DR PO SCH (08:13)
[2018-11-07] MEDS: Z GUARD REMEDY PASTE 57 GM TUBE TOP SCH ×2 (08:14→21:04)
[2018-11-07] MEDS ORDERED: PANTOPRAZOLE SODIUM 40 MG TABLET.DR PO SCH (09:00)
[2018-11-07] MEDS: CEFTRIAXONE 1 G in IV DEXTROSE 5% 50 ML IV SCH (09:36)
[2018-11-07 11:25] VITALS: BP 116/44
[2018-11-07 15:50] VITALS: BP 122/54
[2018-11-07 20:06] VITALS: BP 106/30
[2018-11-07] MEDS: DONEPEZIL 10 MG TABLET PO SCH (21:04)
[2018-11-07] MEDS: ENOXAPARIN SODIUM 40 MG/0.4 ML DISP.SYRIN SQ SCH (21:08)
[2018-11-08 00:56] VITALS: BP 119/45
[2018-11-08 04:44] VITALS: BP 113/48
[2018-11-08] MEDS: LEVOTHYROXINE SODIUM 50 MCG TABLET PO SCH (06:02)
[2018-11-08] MEDS: DOCUSATE SODIUM 100 MG CAPSULE PO SCH ×2 (08:18→16:54)
[2018-11-08] MEDS: DIVALPROEX SPRINKLE 125 MG CAP.SPRINK PO SCH ×2 (08:18→20:13)
[2018-11-08] MEDS: OLANZAPINE 2.5 MG TABLET PO SCH ×3 (08:18→16:54)
[2018-11-08] MEDS: Z GUARD REMEDY PASTE 57 GM TUBE TOP SCH ×2 (08:18→20:14)
[2018-11-08] MEDS: PANTOPRAZOLE SODIUM 40 MG TABLET.DR PO SCH (08:18)
[2018-11-08] MEDS: LISINOPRIL 20 MG TABLET PO SCH (08:21)
[2018-11-08 08:56] LABS: BASOPHILS % (AUTO) 0.2 % (0.0-2.0); EOSINOPHILS # (AUTO) 0.1 K/uL (0.0-0.7); EOSINOPHILS % (AUTO) 0.7 % (0.0-7.0); HEMATOCRIT 34.7 % (31.2-41.9); HEMOGLOBIN 11.6 g/dL (10.9-14.3); LYMPHOCYTES # (AUTO) 3.6 K/uL (20.0-40.0); MEAN CORPUSCULAR HEMOGLOBIN 31.7 uug (24.7-32.8); MEAN CORPUSCULAR HGB CONC 33 g/dL (32.3-35.6); MONOCYTES # (AUTO) 0.6 K/uL (2.0-10.0); MONOCYTES % (AUTO) 6.2 % (0.0-11.0); NEUTROPHILS # (AUTO) 5.2 K/uL (1.8-8.9); NEUTROPHILS % (AUTO) 54.9 % (38.5-71.5); PLATELET COUNT (AUTO) 214 K/uL (179-408); RED BLOOD CELL COUNT(AUTO) 3.65 MIL/uL (3.63-4.92); WHITE BLOOD COUNT (AUTO) 9.5 K/uL (3.8-11.8)
[2018-11-08 09:01] LABS: CARBON DIOXIDE 27 mmol/L (21-32); CHLORIDE 106 mmol/L (98-107); CREATININE 0.8 mg/dL (0.6-1.3); GLUCOSE 88 mg/dL (74-106); POTASSIUM 3.6 mmol/L (3.5-5.1); UREA NITROGEN, BLOOD 12 mg/dL (7-18)
[2018-11-08] MEDS: CEFTRIAXONE 1 G in IV DEXTROSE 5% 50 ML IV SCH (09:18)
[2018-11-08 11:15] VITALS: BP 153/43
[2018-11-08 15:13] VITALS: BP 136/61
[2018-11-08] MEDS: IV NS 1000 ML 1,000 ML IV PRN (16:55)
[2018-11-08 19:46] VITALS: BP 151/67
[2018-11-08] MEDS: ENOXAPARIN SODIUM 40 MG/0.4 ML DISP.SYRIN SQ SCH (20:13)
[2018-11-08] MEDS: DONEPEZIL 10 MG TABLET PO SCH (20:13)
[2018-11-08] MEDS ORDERED: BISACODYL 10 MG SUPP.RECT RC ONE (23:15)
[2018-11-09 05:37] VITALS: BP 161/66
[2018-11-09 05:39] VITALS: BP 154/70
[2018-11-09] MEDS: LEVOTHYROXINE SODIUM 50 MCG TABLET PO SCH (06:15)
[2018-11-09] MEDS: DOCUSATE SODIUM 100 MG CAPSULE PO SCH (08:13)
[2018-11-09] MEDS: DIVALPROEX SPRINKLE 125 MG CAP.SPRINK PO SCH (08:13)
[2018-11-09] MEDS: PANTOPRAZOLE SODIUM 40 MG TABLET.DR PO SCH (08:13)
[2018-11-09] MEDS: LISINOPRIL 20 MG TABLET PO SCH (08:13)
[2018-11-09] MEDS: OLANZAPINE 2.5 MG TABLET PO SCH ×2 (08:13→12:46)
[2018-11-09] MEDS: Z GUARD REMEDY PASTE 57 GM TUBE TOP SCH (08:20)
[2018-11-09] MEDS: CEFTRIAXONE 1 G in IV DEXTROSE 5% 50 ML IV SCH (09:18)
[2018-11-09 09:57] LABS: BASOPHILS % (AUTO) 0.3 % (0.0-2.0); EOSINOPHILS % (AUTO) 0.4 % (0.0-7.0); HEMATOCRIT 32.5 % (31.2-41.9); LYMPHOCYTES # (AUTO) 1.5 K/uL (20.0-40.0); LYMPHOCYTES % (AUTO) 17.2 % (20.5-51.5); MEAN CORPUSCULAR HEMOGLOBIN 32.3 uug (24.7-32.8); MEAN CORPUSCULAR HGB CONC 34 g/dL (32.3-35.6); MEAN CORPUSCULAR VOLUME 95.2 fL (75.5-95.3); MONOCYTES # (AUTO) 0.6 K/uL (2.0-10.0); MONOCYTES % (AUTO) 7.6 % (0.0-11.0); NEUTROPHILS # (AUTO) 6.4 K/uL (1.8-8.9); NEUTROPHILS % (AUTO) 74.5 % (38.5-71.5); PLATELET COUNT (AUTO) 193 K/uL (179-408); RED BLOOD CELL COUNT(AUTO) 3.41 MIL/uL (3.63-4.92); WHITE BLOOD COUNT (AUTO) 8.6 K/uL (3.8-11.8)
[2018-11-09 10:08] LABS: CARBON DIOXIDE 25 mmol/L (21-32); CHLORIDE 107 mmol/L (98-107); CREATININE 0.8 mg/dL (0.6-1.3); GLUCOSE 131 mg/dL (74-106); POTASSIUM 3.3 mmol/L (3.5-5.1); UREA NITROGEN, BLOOD 14 mg/dL (7-18)
[2018-11-09] MEDS ORDERED: POTASSIUM CHLORIDE 20 MEQ TAB.PRT.SR PO ONE (10:15)
[2018-11-09] MEDS ORDERED: CEFT1FRO2 IV (10:19)
[2018-11-09 11:13] VITALS: BP 142/59
== END 2018-11-09 16:15 | DRG 872 ==
LOC: ER 08:30 → TELE3 10:19 → MEDSURG3 11-08 13:50
PROVIDERS: ADMIT Nurse Practitioner Acute Care; ATTEND Nurse Practitioner Acute Care
DX: A41.9 Sepsis, unspecified organism (principal); N39.0 Urinary tract infection, site not specified; E44.0 Moderate protein-calorie malnutrition; D68.59 Other primary thrombophilia; G93.40 Encephalopathy, unspecified; E86.0 Dehydration; Z68.20 Body mass index [BMI] 20.0-20.9, adult; H54.8 Legal blindness, as defined in USA; F03.90 Unspecified dementia, unspecified severity, without behavioral disturbance, psychotic disturbance, mood disturbance, and anxiety; E03.9 Hypothyroidism, unspecified; Z79.890 Hormone replacement therapy; K21.9 Gastro-esophageal reflux disease without esophagitis; E78.5 Hyperlipidemia, unspecified; Z74.09 Other reduced mobility; M19.90 Unspecified osteoarthritis, unspecified site; B96.20 Unspecified Escherichia coli [E. coli] as the cause of diseases classified elsewhere; I10 Essential (primary) hypertension; F20.9 Schizophrenia, unspecified; R79.89 Other specified abnormal findings of blood chemistry
CPT/HCPCS: 36415; 70030-TC; 71045; 83605; 83735; 84100; 84443; 85025; 85730; 87040; 87077; 87086; 92526; 92610; 93005; A4663; C1758; G0378; J0696; J1650; J7030; J7060

== ENCOUNTER 2019-03-01 16:33 | Inpatient (IN) | payer MEDICARE, MEDICAID ==
[~2019-03-01] VITALS: Ht 162.6 cm; Wt 52.2 kg
[~2019-03-01 16:33] MED LIST changes: +CEFT1FRO2 IV; +DIVA125C2 PO; +DONE10TA11 PO; +LISI-603 PO; -LISI10TA5 PO; +MAGN400O6 PO; +OLAN2.5T3 PO; -ONDA4TAB8 PO; -RANI-473 PO; -VITAMIN D
[2019-03-01 17:20] LABS: BASOPHILS % (AUTO) 0.3 % (0.0-2.0); EOSINOPHILS # (AUTO) 0.1 K/uL (0.0-0.7); EOSINOPHILS % (AUTO) 1.7 % (0.0-7.0); HEMATOCRIT 35.3 % (31.2-41.9); HEMOGLOBIN 11.7 g/dL (10.9-14.3); LYMPHOCYTES # (AUTO) 2.6 K/uL (20.0-40.0); LYMPHOCYTES % (AUTO) 32.9 % (20.5-51.5); MEAN CORPUSCULAR HEMOGLOBIN 31.8 uug (24.7-32.8); MEAN CORPUSCULAR HGB CONC 33 g/dL (32.3-35.6); MEAN CORPUSCULAR VOLUME 95.8 fL (75.5-95.3); MONOCYTES # (AUTO) 0.6 K/uL (2.0-10.0); MONOCYTES % (AUTO) 7.2 % (0.0-11.0); NEUTROPHILS # (AUTO) 4.6 K/uL (1.8-8.9); NEUTROPHILS % (AUTO) 57.9 % (38.5-71.5); PLATELET COUNT (AUTO) 255 K/uL (179-408); RED BLOOD CELL COUNT(AUTO) 3.69 MIL/uL (3.63-4.92)
[2019-03-01 17:28] LABS: CREATININE 0.7 mg/dL (0.6-1.3)
[2019-03-01 17:34] LABS: BILIRUBIN,TOTAL 0.2 mg/dL (0.2-1.0); TOTAL PROTEIN, SERUM 6.9 g/dL (6.4-8.2)
--- NOTE | 2019-03-01 17:35 | NUR ---
Gis Instructor assumes care-patient is sleeping, easily arousable, minimally verbal, for admission to med-surgical floor for gastrostomy tube insertion. Dr Zain Rolle accepted patient prior to arrival to ER
[2019-03-01 17:47] LABS: BILIRUBIN,TOTAL 0.2 mg/dL (0.2-1.0)
[2019-03-01 17:48] LABS: TOTAL PROTEIN, SERUM 6.9 g/dL (6.4-8.2)
[2019-03-01 17:52] LABS: BILIRUBIN,DIRECT 0.1 mg/dL (0.0-0.2)
[2019-03-01] MEDS ORDERED: ONDANSETRON 4 MG/2 ML VIAL IV PRN (18:15)
[2019-03-01] MEDS ORDERED: Z GUARD REMEDY PASTE 57 GM TUBE TOP PRN (18:15)
[2019-03-01] MEDS ORDERED: LORAZEPAM 2 MG/1 ML VIAL IV PRN (18:15)
[2019-03-01] MEDS ORDERED: DEXTROSE 50% 50 ML DISP.SYRIN ONE (18:37)
[2019-03-01] MEDS ORDERED: DEXTROSE 50% 50 ML DISP.SYRIN IV ONE (18:45)
[2019-03-01] MEDS ORDERED: DEXTROSE 25% 10 ML DISP.SYRIN IV ONE (18:45)
--- NOTE | 2019-03-01 19:11 | NUR ---
still for admission, endorsed to DOMINIC Munguia accordingly
--- NOTE | 2019-03-01 19:55 | NUR ---
Pt. admitted to [facility] , under care of Dr. Rolle Belongs List completed MRSA swab done
--- NOTE | 2019-03-01 20:20 | NUR ---
Received patient via gurney from ED accompanied by CANDY SUPERVISOR. Patient AOx1, non ambulatory. Patient transferred safely to bed and made comfortable, bed bath provided. Ensured safety and comfort. Noted with IV access on the left wrist, 22g, patent and intact. Bed in low position, locked, side rails up x 2 for safety, bed alarm on. Will continue to monitor.
[2019-03-01 20:30] VITALS: BP 153/49
[2019-03-01] MEDS: IV D5 1/2 NS 1000 ML 1,000 ML IV PRN (20:57)
--- NOTE | 2019-03-01 21:30 | NUR ---
Noted patient is for PEG placement tomorrow under Dr. Sanders, contacted and spoke with Surrogate, Jaimie Duque who gave consent for patient to undergo the procedure, she had no further questions about it.
--- NOTE | 2019-03-02 06:20 | NUR ---
Patient slept intermittently throughout the night. Maintained NPO after midnight in preparation for PEG placement this morning, consent attached to chart. Attended all needs. Ensured safety and comfort.
[2019-03-02 06:23] VITALS: BP 150/85
[2019-03-02 06:48] LABS: BASOPHILS % (AUTO) 0.4 % (0.0-2.0); EOSINOPHILS # (AUTO) 0.1 K/uL (0.0-0.7); EOSINOPHILS % (AUTO) 1.2 % (0.0-7.0); HEMATOCRIT 34.3 % (31.2-41.9); HEMOGLOBIN 11.6 g/dL (10.9-14.3); LYMPHOCYTES % (AUTO) 35.5 % (20.5-51.5); MEAN CORPUSCULAR HEMOGLOBIN 31.8 uug (24.7-32.8); MEAN CORPUSCULAR HGB CONC 34 g/dL (32.3-35.6); MONOCYTES # (AUTO) 0.3 K/uL (2.0-10.0); MONOCYTES % (AUTO) 6.2 % (0.0-11.0); NEUTROPHILS # (AUTO) 3.2 K/uL (1.8-8.9); NEUTROPHILS % (AUTO) 56.7 % (38.5-71.5); PLATELET COUNT (AUTO) 270 K/uL (179-408); RED BLOOD CELL COUNT(AUTO) 3.65 MIL/uL (3.63-4.92); WHITE BLOOD COUNT (AUTO) 5.6 K/uL (3.8-11.8)
[2019-03-02 07:03] LABS: CARBON DIOXIDE 27 mmol/L (21-32); CHLORIDE 104 mmol/L (98-107); CHOLESTEROL 244 mg/dL (<200); CREATININE 0.7 mg/dL (0.6-1.3); GLUCOSE 97 mg/dL (74-106); HDL CHOLESTEROL 49 mg/dL (40-60); MAGNESIUM 1.9 mg/dL (1.8-2.4); PHOSPHOROUS 3.4 mg/dL (2.5-4.9); POTASSIUM 3.8 mmol/L (3.5-5.1); TRIGLYCERIDES 118 MG/DL (30-150); UREA NITROGEN, BLOOD 8 mg/dL (7-18)
--- NOTE | 2019-03-02 07:30 | NUR ---
Patient calm and comfortable laying in bed with no signs of distress; patient will continue to be monitored.
[2019-03-02 09:07] LABS: *BILIRUBIN,URIN NEGATIVE (NEGATIVE); *KETONES,URINE NEGATIVE (NEGATIVE); *UROBILINOGEN,URINE 0.2 E.U./dl (NORMAL); LEUKOCYTE ESTERASE ,URINE 3+ (NEGATIVE); NITRITE, URINE NEGATIVE (NEGATIVE); PH,URINE 8.5 (5.0-8.0); UGLUCOSE NEGATIVE (NEGATIVE)
[2019-03-02] MEDS: PANTOPRAZOLE SODIUM 40 MG VIAL IV SCH (09:44)
[2019-03-02 09:56] LABS: *BLOOD, URINE TRACE (NEGATIVE); *COLOR,URINE YELLOW (YELLOW)
[2019-03-02 09:57] LABS: *CLARITY,URINE SLIGHTLY CLOUDY (CLEAR); BACTERIA,URINE FEW /HPF (NONE SEEN); WBC,URINE 20-50 /HPF (0-3)
[2019-03-02 09:58] LABS: SQUAMOUS EPITHELIAL CELL,UR MODERATE /HPF (NONE SEEN)
[2019-03-02 12:00] VITALS: BP 123/69
[2019-03-02 12:01] VITALS: BP 123/69
[2019-03-02] MEDS ORDERED: PROPOFOL 200 MG/20 ML BOTTLE IV ONE (14:57)
[2019-03-02] MEDS ORDERED: CEFAZOLIN 1 G VIAL IM ONE (14:57)
[2019-03-02] MEDS ORDERED: LIDOCAINE-MPF 2% 5 ML VIAL IJ ONE (14:57)
[2019-03-02 15:12] VITALS: BP 133/38
--- NOTE | 2019-03-02 19:00 | NUR ---
Received patient in bed, resting. Appears to be resting comfortably. No signs of acute distress noted at the moment. Safety precautions in place. Bed locked, lowest position, with 2 side rails up. Bed alarm on. Will continue to monitor.
--- NOTE | 2019-03-02 19:16 | NUR ---
Patient calm and comfortable with no signs of distress; patient had G-tube placement through out shift ; patient came back procedure with stable vital signs. Patient to start [employer] 50ml/hr in am on 03/03/19; Medications through G-tube can start after 4 hours after procedure. Report given to oncoming nurse.
--- NOTE | 2019-03-02 19:45 | NUR ---
Received awake in bed, not in any form of distress. Patient AOx1, non ambulatory. With oxygen support at 2lpm via nasal cannula, maintained. Noted with G-tube in place, secured with abdominal binder. Feeding to start this morning. Ensured safety and comfort. IV access now at right hand, intact. Attended all needs.
[2019-03-02] MEDS: IV D5 1/2 NS 1000 ML 1,000 ML IV PRN (19:49)
[2019-03-02 20:09] VITALS: BP 145/78
[2019-03-02] MEDS ORDERED: CEFTRIAXONE 1 G VIAL IM SCH (20:45)
[2019-03-02] MEDS: CEFTRIAXONE 1 G in IV DEXTROSE 5% 50 ML IV SCH (21:44)
[2019-03-03] MEDS: MORPHINE SULFATE 2 MG/1 ML DISP.SYRIN IV PRN ×2 (03:00→20:59)
[2019-03-03 06:05] VITALS: BP 149/53
--- NOTE | 2019-03-03 06:51 | NUR ---
Patient slept intermittently throughout the night. No feeding per G-tube yet, to start this AM. Attended all needs. Ensured safety and comfort.
--- NOTE | 2019-03-03 07:15 | NUR ---
Patient in Bed, open eyes. No signs of Distress noted. No SOB. No signs of Pain or discomfort. on IVF infusing well on Right hand. No signs of Infiltration noted. Gtube intact and patent. Will Start Gtube feeding, Jevity 1.2 at 50cc/hr for 20 hours. Will continue to monitor.
[2019-03-03] MEDS ORDERED: JEVITY 1.2 1000 ML LIQUID GT PRN (08:00)
[2019-03-03] MEDS: PANTOPRAZOLE SODIUM 40 MG VIAL IV SCH (08:33)
[2019-03-03] MEDS: IV D5 1/2 NS 1000 ML 1,000 ML IV PRN (10:57)
[2019-03-03 11:20] VITALS: BP 148/76
[2019-03-03 15:39] VITALS: BP 151/64
--- NOTE | 2019-03-03 17:10 | NUR ---
Beginning of Shift Bedside report received from AM nurse. Patient is in bed, sleeping arousable to name and touch. Noted with drowsiness/lethargy. Unable to respond verbally but noted with grimace/moan when turned. No signs of pain at rest, will continue to observe pain status throughout shift. Patient clean and dry. Skin remains intact in perineal area. Initial assessment done, will document accordingly. Side rails up. Bed alarm on. Head of bed kept elevated, with Jevity 1.2 running at 50cc/hr via Gtube. Gtube site intact, no noted signs of infection/bleeding. IVF D5 1/2 NS also running at 75cc/hr. Patient is tolerating fluids well with no signs of fluid overload. HAILE mattress for skin. All bony areas padded with pillows including space between knees. Fall precautions and Strict aspiration precautions maintained. Will continue to perform Med/Surg monitoring. Addendum: 03/04/19 at 0132 by MARIANO PASCUAL RN Correct time is 1909
--- NOTE | 2019-03-03 18:32 | NUR ---
Patient in Bed. No signs of Distress noted. No SOB. On Oxygen at 2LPM via nasal Canula, No signs of pain or discomfort. GTube feeding of Jevity 1.2 at 50cc/hr x 20 hours started today. tolerated well. On aspiration Precaution. kept HOD elevated at all times. All needs attended and met. Will Endorse to Oncoming Nurse
[2019-03-03 20:00] VITALS: BP 158/66
[2019-03-03] MEDS: CEFTRIAXONE 1 G in IV DEXTROSE 5% 50 ML IV SCH (20:59)
[2019-03-04] MEDS: IV D5 1/2 NS 1000 ML 1,000 ML IV PRN ×2 (01:06→14:34)
[2019-03-04 04:00] VITALS: BP 150/60
[2019-03-04] MEDS: MORPHINE SULFATE 2 MG/1 ML DISP.SYRIN IV PRN ×2 (06:06→16:00)
--- NOTE | 2019-03-04 06:44 | NUR ---
End of Shift Patient is asleep, calm and with no signs of pain at this time. Pt noted with 2 episodes of pain, that appears to be severe based on FLACC scale during ADL care, Morphine PRN given as ordered, and effective as documented. Good perineal care provided at 0600, noted with BM soft, moderate amount of stool and heavy urine output. Partial linen change provided and change patient's position to L lateral position. Mepilex placed on scar on sacral area. Elbows, bilateral heels offloaded with pillow, and towel placed in between knees to avoid friction. Fall precaution maintained. HOB kept elevated atleast 30 degrees. Gtube feeding turned off at 0500 previous RN reported turning it on at 0900 previous day. Will endorse accordingly.
--- NOTE | 2019-03-04 07:05 | NUR ---
Received resting in Bed, No signs of distress noted. On Oxygen at 2LPM via Nasal canula. No signs of Pain or discomfort. All needs attended and met. GTube is intact and patent. Kept HOB elevated. IVF D5% 0.45NS running at 75 cc/hr, tolerated well. No signs of Infiltration noted. Will continue to monitor.
[2019-03-04] MEDS ORDERED: PANTOPRAZOLE ORAL SUSPENSION 40 MG SUSPDR.PKT GT SCH (09:00)
[2019-03-04 11:29] VITALS: BP 120/72
[2019-03-04 15:41] VITALS: BP 149/89
--- NOTE | 2019-03-04 17:49 | NUR ---
Patient in bed, Open eyes, No signs of Distress noted. No SOB. Sat 96% on Room Air. pain medication given as ordered. Gtube Intact and patent, Patient with Order to Discharge to [facility]. All Discharge Instructions given to EMT, patient unable to signs/comprehend d/t condition. Gave report to Karen ALFARO from [facility]. All belongings sent with patient, Removed IV site and Wrist band. patient was Picked up by 2 EMT in stable condition.
== END 2019-03-04 17:50 | DRG 641 ==
LOC: ER 16:33 → MEDSURG3 19:59
PROC: 0DH63UZ Insertion of Feeding Device into Stomach, Percutaneous Approach (ICD-10-PCS; principal; 2019-03-02)
PROC: 3E0G76Z Introduction of Nutritional Substance into Upper GI, Via Natural or Artificial Opening (ICD-10-PCS; 2019-03-03)
DX: R62.7 Adult failure to thrive (principal); N39.0 Urinary tract infection, site not specified; E44.0 Moderate protein-calorie malnutrition; Z68.1 Body mass index [BMI] 19.9 or less, adult; F03.90 Unspecified dementia, unspecified severity, without behavioral disturbance, psychotic disturbance, mood disturbance, and anxiety; R13.10 Dysphagia, unspecified; H54.8 Legal blindness, as defined in USA; E03.9 Hypothyroidism, unspecified; Z79.890 Hormone replacement therapy; Z74.01 Bed confinement status; Z79.899 Other long term (current) drug therapy; M19.90 Unspecified osteoarthritis, unspecified site; K21.9 Gastro-esophageal reflux disease without esophagitis; I10 Essential (primary) hypertension
CPT/HCPCS: 36415; 83690; 83735; 84100; 84443; 85025; 87077; 87086; A4217; A4663; C1758; C9113; G0378; J0690; J0696; J2270; J3490; J7060